=== PATIENT | female | born 1980 | race Caucasian/White ===

== ENCOUNTER 2016-09-22 12:00 | Emergency (ER) | payer OTHER ==
[2016-09-22 14:15] VITALS: BP 135/67
--- NOTE | 2016-09-22 14:38 | UC ---
Skin Complaint HPI - HPI Summary HPI Summary: sore ankle with increase in redness medial left foot over the past 2 days. Had sore outer right ankle a few weeks ago, now has more pain around the left ankle. NO recent illness, change of medications. No analgesics used. No hx of gout. - History of Current Complaint Chief Complaint: UCLowerExtremity Time Seen by Provider: 09/22/16 14:22 Stated Complaint: LEFT ANKLE PAIN Hx Obtained From: Patient Hx Last Menstrual Period: 08/28/16 ?: No Onset/Duration: Gradual Onset, Lasting Days - 3 Timing: Constant Onset Severity: Mild Current Severity: Moderate Location: Discrete - medial left foot. Character: Painful Aggravating: Touch - Allergy/Home Medications Allergies/Adverse Reactions: Allergies Allergy/AdvReac Type Severity Reaction Status Date / Time Nalbuphine [From Nubain] Allergy Hallucinati Verified 09/22/16 14:12 ons Review of Systems Constitutional: Negative Skin: Negative Eyes: Negative ENT: Negative Respiratory: Negative Cardiovascular: Negative Gastrointestinal: Negative Genitourinary: Negative Motor: Negative Neurovascular: Negative Musculoskeletal: Other: - medial left foot pain Neurological: Negative Psychological: Negative All Other Systems Reviewed And Are Negative: Yes PMH/Surg Hx/FS Hx/Imm Hx - Additional Past Medical History Additional PMH: obese Endocrine History Of: Denies: Diabetes Cardiovascular History Of: Denies: Cardiac Disorders, Hypertension Respiratory History Of: Denies: COPD, Asthma - Surgical History Surgical History: Yes Surgery Procedure, Year, and Place: Tonsils, cancer cells removed from uterus - Family History Known Family History: Positive: Other - mother has arthritis, uncertain type - Social History 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 Alcohol Use: None Substance Use Type: None Smoking Status (MU): Heavy Every Day Tobacco Smoker Type: Cigarettes Amount Used/How Often: 1 PPD Length of Time of Smoking/Using Tobacco: 18 yrs Have You Smoked in the Last Year: Yes Household Exposure Type: Cigarettes - Immunization History Most Recent Influenza Vaccination: Not the Season Physical Exam Triage Information Reviewed: Yes Appearance: Obese Vital Signs: Initial Vital Signs Temp 98.4 F 09/22/16 14:09 Pulse 96 09/22/16 14:09 Resp 18 09/22/16 14:09 BP 135/67 09/22/16 14:09 Pulse Ox 100 09/22/16 14:09 Eye Exam: Normal ENT Exam: Normal Dental Exam: Normal Neck exam: Normal Neck: Positive: Supple, Nontender Respiratory: Positive: Lungs clear, Normal breath sounds Cardiovascular: Positive: RRR, No Murmur Musculoskeletal: Positive: Strength Intact, ROM Intact - both ankles. Mild tenderness in the left ankle with movement, but no warmth or swelling. Neurological Exam: Normal Psychological Exam: Normal Skin: Positive: Other - warmth and erythema left medial foot over approx 10 x 5 cm area, blanches with pressure. Callus on foot possible entry point. Course/Dx - Course Course Of Treatment: cephalexin for cellulitis. - Differential Diagnoses - Skin Complaint Differential Diagnoses: Cellulitis, Other - gout, ankle strain, stress fracture. - Diagnoses Provider Diagnoses: cellulitis left foot. Discharge - Discharge Plan Condition: Stable Disposition: HOME Prescriptions: Cephalexin CAP* [Keflex 500 CAP*] 500 mg PO QID #28 cap Patient Education Materials: Cellulitis (ED) Additional Instructions: The area of soreness and redness is consistent with a skin infection. Ensure that you use a moisturizer on the callus on your heels, because a split in the skin was the most likely entry point. You can soak your feet in epsom salts for comfort. Keep your feet elevated as much as possible for the next 2 to 3 days. Follow up if there is increasing pain, redness or fever.
== END 2016-09-22 14:56 | disposition home or self-care (01) ==
LOC: UCCORT 12:00
DX: L03.116 Cellulitis of left lower limb (principal); Z88.5 Allergy status to narcotic agent; F17.210 Nicotine dependence, cigarettes, uncomplicated
CPT/HCPCS: 99212; G0463

== ENCOUNTER 2016-10-10 09:00 | Emergency (ER) | payer OTHER ==
[2016-10-10 09:34] VITALS: BP 97/61
--- NOTE | 2016-10-10 10:28 | UC ---
Throat Pain/Nasal Eduardo HPI - HPI Summary HPI Summary: complaint of nasal congestion and cough that started 3 weeks ago frequent headaches pain and pressure in her face prodcutive cough with green sputum denies fever and chills taking tylenol with some relief of headaches was treated with keflex for cellulitis finished antibiotic approx1 week ago - History of Current Complaint Chief Complaint: UCRespiratory Stated Complaint: SINUS COMPLAINT Time Seen by Provider: 10/10/16 10:21 Hx Obtained From: Patient Hx Last Menstrual Period: 09/24/16 - Allergies/Home Medications Allergies/Adverse Reactions: Allergies Allergy/AdvReac Type Severity Reaction Status Date / Time Nalbuphine [From Nubain] Allergy Hallucinati Verified 10/10/16 09:28 ons Home Medications: Home Medications Acetaminophen 500 mg PO ONCE PRN 10/10/16 [History Confirmed 10/10/16] PMH/Surg Hx/FS Hx/Imm Hx Previously Healthy: Yes Endocrine History Of: Denies: Diabetes Cardiovascular History Of: Denies: Cardiac Disorders, Hypertension Respiratory History Of: Denies: COPD, Asthma - Surgical History Surgical History: Yes Surgery Procedure, Year, and Place: Tonsils, cancer cells removed from uterus - Family History Known Family History: Positive: Other - mother has arthritis, uncertain type Negative: Cardiac Disease, Hypertension, Diabetes - Social History Occupation: Employed Full-time Lives: With Family Alcohol Use: None Substance Use Type: None Smoking Status (MU): Heavy Every Day Tobacco Smoker Type: Cigarettes Amount Used/How Often: 1 PPD Length of Time of Smoking/Using Tobacco: 18 yrs Have You Smoked in the Last Year: Yes Household Exposure Type: Cigarettes Cessation Counseling: Patient Advised to Stop - Immunization History Most Recent Influenza Vaccination: Not the Season Review of Systems Constitutional: Negative Skin: Negative Eyes: Negative ENT: Ear Ache, Nasal Discharge Respiratory: Cough Cardiovascular: Negative Gastrointestinal: Negative Genitourinary: Negative Motor: Negative Neurovascular: Negative Musculoskeletal: Negative Neurological: Negative Psychological: Negative All Other Systems Reviewed And Are Negative: Yes Physical Exam Triage Information Reviewed: Yes Appearance: Well-Nourished, Ill-Appearing Vital Signs: Initial Vital Signs Temp 97.9 F 10/10/16 09:29 Pulse 77 10/10/16 09:29 Resp 20 10/10/16 09:29 BP 97/61 10/10/16 09:29 Pulse Ox 97 10/10/16 09:29 Vital Signs Reviewed: Yes Eyes: Positive: Conjunctiva Clear ENT: Positive: Pharyngeal erythema, Nasal congestion, Nasal drainage, TM bulging , Other: - maxillary sinus tenderness. Negative: TM red Neck: Positive: No Lymphadenopathy Respiratory: Positive: Lungs clear, Normal breath sounds, No respiratory distress Cardiovascular: Positive: RRR, No Murmur, Pulses Normal Abdomen Description: Positive: Nontender, Soft Bowel Sounds: Positive: Present Musculoskeletal: Positive: No Edema Neurological Exam: Normal Psychological Exam: Normal Skin Exam: Normal Throat Pain/Nasal Course/Dx - Differential Dx/Diagnosis Differential Diagnosis/HQI/PQRI: Pharyngitis, Sinusitis, URI Provider Diagnoses: sinusitis Discharge - Discharge Plan Condition: Stable Disposition: HOME Prescriptions: DOXYcycline CAP(*) [DOXYcycline 100MG CAP(*)] 100 mg PO BID #20 cap Patient Education Materials: Sinusitis (ED), How to Stop Smoking (ED) Referrals: Jeane Leon MD [Primary Care Provider] - Additional Instructions: SINUSITIS What is Sinusitis? Sinusitis is inflammation or infection of the lining of the sinuses behind the bones in your cheeks or forehead. Sinusitis may occur following a common cold, flu, or other infection; allergies; a tooth infection that spreads to the sinuses; swimming in contaminated water; pressure changes in airplanes at high altitudes; violent sneezing or nose blowing or smoking or breathing other peoples smoke. Symptoms Might Include: Nasal Congestion Sneezing Watery eyes, eye irritation, or eye itching Headaches Pressure in the cheeks Wheezing Trouble smelling Sore throat and coughing may occur Treatment Recommendations: Take medicines as prescribed until completely gone. Drink plenty of fluids. Use saline nose spray to thin the mucous and help the sinuses drain. Use a vaporizer or humidifier. Apply warm compresses to the face or forehead several times a day for 10 to 20 minutes. Call Your Doctor or Return Here IF: Your pain increases during treatment. You develop a high temperature. You develop unusual swelling around the eyes. You have difficulty with your vision. You develop a severe headache, earache, or toothache. You develop increased fever or fever that does not respond to medication such as Tylenol?. You have difficulty breathing or catching your breath. You begin to have any other new symptoms that worry you.
== END 2016-10-10 10:35 | disposition home or self-care (01) ==
LOC: UCCORT 09:00
DX: J32.9 Chronic sinusitis, unspecified (principal); F17.210 Nicotine dependence, cigarettes, uncomplicated
CPT/HCPCS: 99212; G0463

== ENCOUNTER 2017-05-18 15:56 | Emergency (ER) | payer OTHER ==
[2017-05-18 16:29] VITALS: BP 113/69
--- NOTE | 2017-05-18 16:47 | UC ---
Respiratory Complaint HPI - HPI Summary HPI Summary: Cough x 2 weeks now productive. SOB. - History of Current Complaint Chief Complaint: UCRespiratory Stated Complaint: COUGH,SINUSES Time Seen by Provider: 05/18/17 16:40 Hx Obtained From: Patient Hx Last Menstrual Period: 05/10/17 ?: No Onset/Duration: Gradual Onset, Lasting Weeks - 2, Worse Since - last 4 days. Severity Initially: Mild Severity Currently: Moderate Character: Cough: Productive Associated Signs And Symptoms: Positive: Dyspnea, Fever, Wheezing, URI, Nasal Congestion, Sinus Discomfort. Negative: Hoarseness Related History: Seasonal Allergies - Allergies/Home Medications Allergies/Adverse Reactions: Allergies Allergy/AdvReac Type Severity Reaction Status Date / Time Nalbuphine [From Nubain] Allergy Hallucinati Verified 05/18/17 16:29 ons Home Medications: Home Medications Famotidine TAB* [Pepcid 20 MG TAB*] 20 mg PO DAILY 05/18/17 [History Confirmed 05/18/17] PMH/Surg Hx/FS Hx/Imm Hx Psychological History: Depression, Post Traumatic Stress Disorder - Surgical History Surgical History: Yes Surgery Procedure, Year, and Place: Tonsils, cancer cells removed from uterus - Family History Known Family History: Positive: Hypertension, Diabetes, Other - mother has arthritis, uncertain type Negative: Cardiac Disease - Social History Occupation: Employed Full-time Lives: With Family Alcohol Use: None Substance Use Type: None Smoking Status (MU): Heavy Every Day Tobacco Smoker Type: Cigarettes Amount Used/How Often: 1 PPD Length of Time of Smoking/Using Tobacco: 18 yrs Have You Smoked in the Last Year: Yes Household Exposure Type: Cigarettes - Immunization History Most Recent Influenza Vaccination: no Review of Systems Constitutional: Fever ENT: Sore Throat, Ear Ache, Sinus Congestion, Sinus Pain/Tenderness Respiratory: Shortness Of Breath, Cough Is Patient Immunocompromised?: No All Other Systems Reviewed And Are Negative: Yes Physical Exam Triage Information Reviewed: Yes Appearance: No Pain Distress, Ill-Appearing - mild, Obese Vital Signs: Initial Vital Signs Temp 98.4 F 05/18/17 16:25 Pulse 96 05/18/17 16:25 Resp 18 05/18/17 16:25 BP 113/69 05/18/17 16:25 Pulse Ox 98 05/18/17 16:25 Vital Signs Reviewed: Yes Eyes: Positive: Conjunctiva Clear ENT: Positive: Pharynx normal, Nasal congestion, TMs normal Neck exam: Normal Respiratory: Positive: Wheezing - Expiratory wheezes with coughing Cardiovascular Exam: Normal Musculoskeletal Exam: Normal Neurological Exam: Normal Psychological Exam: Normal Skin Exam: Normal Diagnostic Evaluation - Laboratory O2 Sat by Pulse Oximetry: 98 Respiratory Course/Dx - Differential Dx/Diagnosis Differential Diagnosis/HQI/PQRI: Asthma, Lower Resp Infection, Sinusitis Provider Diagnoses: Acute URI. Acute sinusitis. Acute bronchospasm Discharge - Discharge Plan Condition: Stable Disposition: HOME Prescriptions: Sulfamethox/Trimethoprim DS* [Bactrim DS 800/160 TAB*] 1 tab PO BID #20 tab predniSONE TAB* [Deltasone TAB*] 20 mg PO DAILY #18 tab Patient Education Materials: Upper Respiratory Infection (ED), Sinusitis (ED), Bronchospasm (ED), Sulfamethoxazole/Trimethoprim (By mouth), Prednisone (By mouth) Additional Instructions: Smoking Cessation Tricks. 1. Cut down by 1 cigarette per day every 2-3 days. Write the number of smokes for that day on the calendar. 2. Identify triggers to smoking: after meals, on the phone, in the car, with coffee, on breaks at work, etc. 3. Formulate a plan with a behavior to replace the smoking. Fireballs in the car , doodle pad on the phone, flavored creamer for the coffee, go for a walk after a meal or on break at work. 4. For stress smokes do deep breathing relaxation. Breath deep in through the nose hold the breath in for a few seconds then breath out slowly through the mouth.
== END 2017-05-18 17:02 | disposition home or self-care (01) ==
LOC: UCCORT 15:56
DX: J06.9 Acute upper respiratory infection, unspecified (principal); J01.90 Acute sinusitis, unspecified; J98.01 Acute bronchospasm
CPT/HCPCS: 99212; G0463

== ENCOUNTER 2017-06-03 19:10 | Emergency (ER) | payer OTHER | END 2017-06-03 20:04 | disposition left against medical advice (07) | LOC: UCCORT 19:10 | DX: R05 Cough (principal); Z53.21 Procedure and treatment not carried out due to patient leaving prior to being seen by health care provider ==

== ENCOUNTER 2018-08-22 10:35 | Emergency (ER) | payer OTHER ==
[2018-08-22 11:50] VITALS: BP 114/73
--- NOTE | 2018-08-22 12:19 | UC ---
Throat Pain/Nasal Eduardo HPI - HPI Summary HPI Summary: Pt c/o sudden onset of nasal congestion, sinus pressure and pain, ZAMARRIPA, "low grade fever", X 3 days. Pt states that she gets sinus infections "all the time " and thinks she has one now. - History of Current Complaint Chief Complaint: UCGeneralIllness Stated Complaint: SINUSES Time Seen by Provider: 08/22/18 12:15 Hx Obtained From: Patient Hx Last Menstrual Period: 08/03/18 ?: No Onset/Duration: Sudden Onset, Lasting Days, Still Present, Worse Since - onset Severity: Moderate Pain Intensity: 0 Cough: Nonproductive Associated Signs & Symptoms: Positive: Sinus Discomfort, Fever - subjective Related History: Seasonal Allergies, Smoking - Epiglottits Risk Factors Epiglottis Risk Factors: Sudden Onset - Allergies/Home Medications Allergies/Adverse Reactions: Allergies Allergy/AdvReac Type Severity Reaction Status Date / Time nalbuphine [From Nubain] Allergy Hallucinati Verified 08/22/18 11:47 ons Home Medications: Home Medications Venlafaxine EXT RELEASE CAP* [Effexor Xr CAP*] 150 mg PO DAILY 08/22/18 [ History Confirmed 08/22/18] PMH/Surg Hx/FS Hx/Imm Hx Previously Healthy: Yes - Surgical History Surgical History: Yes Surgery Procedure, Year, and Place: Tonsils, cancer cells removed from uterus - Family History Known Family History: Positive: Hypertension, Diabetes, Other - mother has arthritis, uncertain type Negative: Cardiac Disease - Social History Occupation: Employed Full-time Lives: With Family Alcohol Use: None Substance Use Type: None Smoking Status (MU): Heavy Every Day Tobacco Smoker Type: Cigarettes Amount Used/How Often: 1 PPD Length of Time of Smoking/Using Tobacco: 18 yrs Have You Smoked in the Last Year: Yes Household Exposure Type: Cigarettes - Immunization History Most Recent Influenza Vaccination: no Review of Systems All Other Systems Reviewed And Are Negative: Yes Constitutional: Positive: Fever, Chills Skin: Positive: Negative Eyes: Positive: Negative ENT: Positive: Sinus Congestion, Sinus Pain/Tenderness Respiratory: Positive: Cough Cardiovascular: Positive: Negative Gastrointestinal: Positive: Negative Genitourinary: Positive: Negative Motor: Positive: Negative Neurovascular: Positive: Negative Musculoskeletal: Positive: Myalgia Neurological: Positive: Headache Psychological: Positive: Negative Is Patient Immunocompromised?: No Physical Exam Triage Information Reviewed: Yes Appearance: Ill-Appearing Vital Signs: Initial Vital Signs Temp 97.8 F 08/22/18 11:46 Pulse 107 08/22/18 11:46 Resp 18 08/22/18 11:46 BP 114/73 08/22/18 11:46 Pulse Ox 99 08/22/18 11:46 Vital Signs Reviewed: Yes Eye Exam: Normal ENT: Positive: Nasal congestion, Sinus tenderness Dental Exam: Normal Neck exam: Normal Respiratory Exam: Normal Cardiovascular Exam: Normal Musculoskeletal Exam: Normal Neurological Exam: Normal Psychological Exam: Normal Skin Exam: Normal Throat Pain/Nasal Course/Dx - Differential Dx/Diagnosis Differential Diagnosis/HQI/PQRI: Influenza, Pharyngitis, Sinusitis, Tonsillitis Provider Diagnosis: Sinusitis Discharge - Sign-Out/Discharge Documenting (check all that apply): Patient Departure All imaging exams completed and their final reports reviewed: No Studies - Discharge Plan Condition: Stable Disposition: HOME Prescriptions: Amoxicillin PO (*) [Amoxicillin 875 MG (*)] 875 mg PO Q12H #20 tab Guaifenesin/Pseudoephedrne HCl [Mucinex D ER 600-60 mg Tablet] 1 each PO Q12H # 14 tab.er.12h Patient Education Materials: Sinusitis (ED) Referrals: [facility] [Outside] No Primary Care Phys,NOPCP [Primary Care Provider] - - Billing Disposition and Condition Condition: STABLE Disposition: Home - Attestation Statements Provider Attestation: I was available for consult. This patient was seen by the VANDANA. The patient was not presented to, seen by, or examined by me. EK
== END 2018-08-22 12:26 | disposition home or self-care (01) ==
LOC: UCCORT 10:35
DX: J32.9 Chronic sinusitis, unspecified (principal); Z88.5 Allergy status to narcotic agent; F17.210 Nicotine dependence, cigarettes, uncomplicated
CPT/HCPCS: 99212; G0463

== ENCOUNTER 2018-11-02 18:29 | Emergency (ER) | payer OTHER ==
[2018-11-02 20:39] VITALS: BP 131/62
--- NOTE | 2018-11-02 20:56 | UC ---
FLU HPI - HPI Summary HPI Summary: 38 year old female with PM h + for tobuse, sinus infections in past presents with 24 hours rafael body aches, chills, fever 101, sore throat, cough- non- productive, chest pain with coughing, sinus congestion. Runs day-care, + exposures. - History of Current Complaint Chief Complaint: UCRespiratory Stated Complaint: COUGH,FEVER,CHILLS Time Seen by Provider: 11/02/18 20:24 Hx Obtained From: Patient Hx Last Menstrual Period: 10/25/18 ?: No Onset/Duration: Sudden Onset Severity Currently: Moderate Severity Initially: Moderate Pain Intensity: 5 Pain Scale Used: 0-10 Numeric Associated Signs & Symptoms: Positive: Fever, F/C, Myalgia, Cough, Sore Throat, Nasal Congestion, Headache Related Hx: Possible Flu/Infectious Exposure - Allergy/Home Medications Allergies/Adverse Reactions: Allergies Allergy/AdvReac Type Severity Reaction Status Date / Time nalbuphine [From Nubain] Allergy Hallucinati Verified 08/22/18 11:47 ons seasonal Allergy Eyes Uncoded 11/02/18 20:39 Itchy/Swollen/Red/Watery Home Medications: Home Medications D-Methorphan/PE/Acetaminophen [Vicks Dayquil Liquid] 1 liq PO ONCE 11/02/18 [ History Confirmed 11/02/18] Omeprazole 20 mg PO DAILY 11/02/18 [History Confirmed 11/02/18] PMH/Surg Hx/FS Hx/Imm Hx Previously Healthy: Yes - Surgical History Surgical History: Yes Surgery Procedure, Year, and Place: Tonsils, cancer cells removed from uterus - Family History Known Family History: Positive: Hypertension, Diabetes, Other - mother has arthritis, uncertain type Negative: Cardiac Disease - Social History Alcohol Use: None Substance Use Type: None Smoking Status (MU): Heavy Every Day Tobacco Smoker Type: Cigarettes Amount Used/How Often: 1 PPD Length of Time of Smoking/Using Tobacco: 18 yrs Have You Smoked in the Last Year: Yes Household Exposure Type: Cigarettes - Immunization History Most Recent Influenza Vaccination: no Review of Systems All Other Systems Reviewed And Are Negative: Yes Constitutional: Positive: Fever, Chills, Fatigue ENT: Positive: Sore Throat, Sinus Congestion Respiratory: Positive: Cough Neurovascular: Positive: Negative Neurological: Positive: Headache Is Patient Immunocompromised?: No Physical Exam Triage Information Reviewed: Yes Appearance: No Pain Distress, Well-Nourished, Ill-Appearing - moderate Vital Signs: Initial Vital Signs Temp 100.6 F 11/02/18 20:33 Pulse 101 11/02/18 20:33 Resp 28 11/02/18 20:33 BP 131/62 11/02/18 20:33 Pulse Ox 95 11/02/18 20:33 Vital Signs Reviewed: Yes Eyes: Positive: Conjunctiva Clear ENT: Positive: Pharyngeal erythema, TMs normal, Tonsillar swelling - mild, Sinus tenderness, Uvula midline. Negative: TM bulging, TM dull, TM red, Tonsillar exudate Neck: Positive: Supple, Nontender, Enlarged Nodes @ - b/l submand Respiratory: Positive: Chest non-tender, Lungs clear, Normal breath sounds, No respiratory distress, No accessory muscle use. Negative: Crackles, Rhonchi, Stridor, Wheezing Cardiovascular: Positive: RRR Abdomen Description: Negative: CVA Tenderness (R), CVA Tenderness (L) Psychological Exam: Normal Skin Exam: Normal Flu Course/Dx - Course Course Of Treatment: rapid flu- +, tamiflu given, OTC medications for symptoms. - Differential Dx/Diagnosis Differential Diagnosis/HQI/PQRI: Influenza Provider Diagnosis: Influenza A Discharge - Sign-Out/Discharge Documenting (check all that apply): Patient Departure All imaging exams completed and their final reports reviewed: No Studies - Discharge Plan Condition: Good Disposition: HOME Prescriptions: Oseltamivir CAP* [Tamiflu CAP*] 75 mg PO BID #9 cap Patient Education Materials: Influenza (ED) Referrals: No Primary Care Phys,NOPCP [Primary Care Provider] - Additional Instructions: - Increase fluids - Increase hygiene precautions - Tylenol/ motrin for fever, chills - Tamiflu twice daily x 5 days to decrease symptoms, lessen length. - Over the counter medication for other symptoms - Go to ER with increased headache, fever > 102 not brought down by meds, neck stiffness - Billing Disposition and Condition Condition: GOOD Disposition: Home
[2018-11-02 21:09] LABS: Influenza A Molecular POSITIVE (Negative)
[2018-11-02] MEDS ORDERED: Oseltamivir CAP* 75 MG CAP PO ONE (21:15)
== END 2018-11-02 21:23 | disposition home or self-care (01) ==
LOC: UCCORT 18:29
DX: J10.1 Influenza due to other identified influenza virus with other respiratory manifestations (principal); F17.210 Nicotine dependence, cigarettes, uncomplicated; Z88.8 Allergy status to other drugs, medicaments and biological substances; Z91.09 Other allergy status, other than to drugs and biological substances
CPT/HCPCS: 99212; A9270-GY; G0463

== ENCOUNTER 2019-01-22 08:37 | Emergency (ER) | payer OTHER ==
[2019-01-22 08:57] VITALS: BP 110/68
--- NOTE | 2019-01-22 09:35 | UC ---
Throat Pain/Nasal Eduardo HPI - HPI Summary HPI Summary: 38 year old female with URI complaint. ONSET YESTERDAY WITH A HEADACHE, NECK PAIN AND SINUS PAIN. COUGH, FEELS SOB WITH THE COUGH. NO SORE THROAT OR EAR PAIN. NO FEVER SHE IS AWARE OF. OTC meds with minimal relief. No CP or SOB. - History of Current Complaint Chief Complaint: UCRespiratory Stated Complaint: ZAMARRIPA,SINUS,NECK PAIN Time Seen by Provider: 01/22/19 09:29 Hx Obtained From: Patient Hx Last Menstrual Period: 01/14/19 Pain Intensity: 7 - Allergies/Home Medications Allergies/Adverse Reactions: Allergies Allergy/AdvReac Type Severity Reaction Status Date / Time nalbuphine [From Nubain] Allergy Hallucinati Verified 01/22/19 08:50 ons seasonal Allergy Eyes Uncoded 01/22/19 08:50 Itchy/Swollen/Red/Watery PMH/Surg Hx/FS Hx/Imm Hx Previously Healthy: Yes GI/ History: Gastroesophageal Reflux Psychological History: Anxiety, Depression, Post Traumatic Stress Disorder - Surgical History Surgical History: Yes Surgery Procedure, Year, and Place: Tonsils, cancer cells removed from uterus - Family History Known Family History: Positive: Hypertension, Diabetes, Other - mother has arthritis, uncertain type Negative: Cardiac Disease - Social History Alcohol Use: None Substance Use Type: None Smoking Status (MU): Heavy Every Day Tobacco Smoker Type: Cigarettes Amount Used/How Often: 1 PPD Length of Time of Smoking/Using Tobacco: 18 yrs Have You Smoked in the Last Year: Yes Household Exposure Type: Cigarettes - Immunization History Most Recent Influenza Vaccination: no Review of Systems All Other Systems Reviewed And Are Negative: Yes Constitutional: Positive: Fatigue ENT: Positive: Sore Throat, Ear Ache, Sinus Congestion, Sinus Pain/Tenderness Respiratory: Positive: Cough Neurological: Positive: Headache Is Patient Immunocompromised?: No Physical Exam Triage Information Reviewed: Yes Appearance: Well-Appearing, No Pain Distress, Well-Nourished Vital Signs: Initial Vital Signs Temp 97.7 F 01/22/19 08:51 Pulse 91 01/22/19 08:51 Resp 17 01/22/19 08:51 BP 110/68 01/22/19 08:51 Pulse Ox 99 01/22/19 08:51 Eye Exam: Normal ENT Exam: Normal ENT: Positive: Hearing grossly normal, Pharynx normal, Nasal congestion, TMs normal, Sinus tenderness. Negative: Pharyngeal erythema, TM bulging, TM dull, TM red, Tonsillar swelling, Tonsillar exudate Dental Exam: Normal Neck exam: Normal Neck: Positive: 1 Respiratory Exam: Normal Cardiovascular Exam: Normal Abdominal Exam: Normal Musculoskeletal Exam: Normal Neurological Exam: Normal Psychological Exam: Normal Skin Exam: Normal Throat Pain/Nasal Course/Dx - Course Course Of Treatment: 24 hours of sinus symptoms. viral in nature. treat as viral at this time. RTO if any concerns . she is aware and agree to plan - Differential Dx/Diagnosis Differential Diagnosis/HQI/PQRI: Sinusitis, URI Provider Diagnosis: Sinusitis Discharge - Sign-Out/Discharge Documenting (check all that apply): Patient Departure All imaging exams completed and their final reports reviewed: No Studies - Discharge Plan Condition: Good Disposition: HOME Prescriptions: Fluticasone NASAL SPRAY 50MCG* [Flonase NASAL SPRAY 50MCG*] 2 spray BOTH NARES DAILY #1 btl Ibuprofen TAB* [Motrin TAB* 600 MG] 600 mg PO Q6H PRN #20 tab PRN Reason: Pain Loratadine 10 mg PO DAILY #30 capsule Patient Education Materials: Sinusitis (ED) Referrals: JOHN Mays [Primary Care Provider] - - Billing Disposition and Condition Condition: GOOD Disposition: Home
== END 2019-01-22 10:02 | disposition home or self-care (01) ==
LOC: UCCORT 08:37
DX: J32.9 Chronic sinusitis, unspecified (principal); F17.210 Nicotine dependence, cigarettes, uncomplicated; Z85.42 Personal history of malignant neoplasm of other parts of uterus
CPT/HCPCS: 99212; G0463

== ENCOUNTER 2019-04-16 16:20 | Emergency (ER) | payer OTHER ==
[2019-04-16 16:56] VITALS: BP 111/57
--- NOTE | 2019-04-16 16:57 | UC ---
Respiratory Complaint HPI - HPI Summary HPI Summary: 38-year-old female who has had head congestion with productive cough of greenish sputum over the past 2 weeks. She's also had some sinus pressure. She is a smoker. - History of Current Complaint Chief Complaint: UCGeneralIllness Stated Complaint: COUGH Time Seen by Provider: 04/16/19 16:56 Hx Obtained From: Patient Hx Last Menstrual Period: 04/11/19 ?: No Onset/Duration: Gradual Onset Timing: Constant Severity Initially: Mild Severity Currently: Moderate Pain Intensity: 0 Character: Cough: Productive - Patient states green sputum but she thinks from her sinuses. Alleviating Factors: Nothing Associated Signs And Symptoms: Positive: Nasal Congestion, Sinus Discomfort - Allergies/Home Medications Allergies/Adverse Reactions: Allergies Allergy/AdvReac Type Severity Reaction Status Date / Time nalbuphine [From [facility]] Allergy Hallucinati Verified 04/16/19 16:51 ons seasonal Allergy Eyes Uncoded 04/16/19 16:51 Itchy/Swollen/Red/Watery Home Medications: Home Medications Venlafaxine CAP (NF) [Effexor CAP (NF)] 75 mg PO DAILY PRN 04/16/19 [History Confirmed 04/16/19] PMH/Surg Hx/FS Hx/Imm Hx Previously Healthy: Yes GI/ History: Gastroesophageal Reflux Psychological History: Depression - Surgical History Surgical History: Yes Surgery Procedure, Year, and Place: Tonsils, cancer cells removed from uterus - Family History Known Family History: Positive: Hypertension, Diabetes, Other - mother has arthritis, uncertain type Negative: Cardiac Disease - Social History Alcohol Use: None Substance Use Type: None Smoking Status (MU): Heavy Every Day Tobacco Smoker Type: Cigarettes Amount Used/How Often: 1 PPD Length of Time of Smoking/Using Tobacco: 18 yrs Have You Smoked in the Last Year: Yes Household Exposure Type: Cigarettes - Immunization History Most Recent Influenza Vaccination: no Review of Systems All Other Systems Reviewed And Are Negative: Yes ENT: Positive: Nasal Discharge, Sinus Congestion, Sinus Pain/Tenderness Respiratory: Positive: Cough Is Patient Immunocompromised?: No Physical Exam Triage Information Reviewed: Yes Appearance: Well-Appearing, No Pain Distress, Well-Nourished Vital Signs: Initial Vital Signs Temp 98.8 F 04/16/19 16:53 Pulse 88 04/16/19 16:53 Resp 16 04/16/19 16:53 BP 111/57 09/13/19 16:53 Pulse Ox 99 04/16/19 16:53 Vital Signs Reviewed: Yes Eyes: Positive: Conjunctiva Clear ENT: Positive: Pharynx normal, Nasal congestion, Nasal drainage - Yellowish- green nasal coryza., TMs normal, Sinus tenderness - Bilateral maxillary sinus tenderness on palpation., Uvula midline Neck: Positive: Supple, Nontender, No Lymphadenopathy Respiratory: Positive: Lungs clear, Normal breath sounds, No respiratory distress, No accessory muscle use Cardiovascular: Positive: RRR, No Murmur, Pulses Normal, Brisk Capillary Refill Musculoskeletal Exam: Normal Neurological Exam: Normal Psychological Exam: Normal Skin Exam: Normal Respiratory Course/Dx - Course Course Of Treatment: Patient is comfortable here. I'm going to treat her for sinus infection and she is follow-up with her primary care provider if no improvement in 4 or 5 days. - Differential Dx/Diagnosis Provider Diagnosis: Sinusitis Discharge ED - Sign-Out/Discharge Documenting (check all that apply): Patient Departure All imaging exams completed and their final reports reviewed: No Studies - Discharge Plan Condition: Good Disposition: HOME Prescriptions: Amoxicillin PO (*) [Amoxicillin 875 MG (*)] 875 mg PO BID 10 Days #20 tab Patient Education Materials: Sinusitis (ED) Referrals: Panda Styles PA [Primary Care Provider] - Additional Instructions: Increase fluids, follow-up with your own provider in 5-6 days if no improvement. - Billing Disposition and Condition Condition: GOOD Disposition: Home
== END 2019-04-16 17:28 | disposition home or self-care (01) ==
LOC: UCCORT 16:20
DX: J32.9 Chronic sinusitis, unspecified (principal); F32.9 Major depressive disorder, single episode, unspecified; Z88.5 Allergy status to narcotic agent; F17.210 Nicotine dependence, cigarettes, uncomplicated
CPT/HCPCS: 99212; G0463